=== PATIENT | female | born 1985 | race Caucasian/White ===

== ENCOUNTER 2018-09-05 08:00 | Outpatient (CLI) | payer OTHER | END 2018-09-05 23:59 | disposition home or self-care (01) | LOC: CVU 08:00 | PROVIDERS: ATTEND Orthopaedic Surgery | DX: I07.1 Rheumatic tricuspid insufficiency (principal); Z82.49 Family history of ischemic heart disease and other diseases of the circulatory system | CPT/HCPCS: 93306 ==